=== PATIENT | male | born 1955 | race Caucasian/White ===

== ENCOUNTER 2023-05-12 15:43 | Inpatient (IN) | payer MEDICARE, BC ==
[~2023-05-12] VITALS: Ht 189.2 cm; Wt 111.1 kg
[2023-05-12] MEDS ORDERED: ONDANSETRON HCL 4 MG/2 ML VIAL IV ONE (16:15)
[2023-05-12] MEDS ORDERED: SODIUM CHLORIDE 0.9% 1,000 ML IV ONE ×2 (16:15)
[2023-05-12 16:25] LABS: Basophils # (auto) 0 10 ^3/uL (0-0.2); Basophils % (auto) 0.3 % (0.0-2.0); Eosinophils # (auto) 0.1 10 ^3/uL (0-0.8); Eosinophils % (auto) 1.8 % (0.0-7.0); Hematocrit 35.2 % (36.0-46.0); Hemoglobin 11.7 g/dL (12.2-16.2); Lymphocytes # (auto) 0.7 10 ^3/uL (0.4-5.4); Lymphocytes % (auto) 10.6 % (10.0-50.0); Mean Corpuscular Hemoglobin 33.5 pg (28.0-32.0); Mean Corpuscular Hgb Conc. 33.2 g/dL (32.0-36.0); Mean Corpuscular Volume 100.9 fL (80.0-100.0); Monocytes # (auto) 0.4 10 ^3/uL (0-1.3); Monocytes % (auto) 6.2 % (0.0-12.0); Neutrophils # (auto) 5.2 10 ^3/uL (1.6-8.6); Neutrophils % (auto) 81.1 % (37.0-80.0); Red Blood Cells 3.49 10^6/uL (4.0-5.20); Red Cell Distribution Width 14.3 % (11.8-14.3); White Blood Cell 6.4 10^3/uL (4.4-10.8)
[2023-05-12 16:43] LABS: Alanine Aminotransferase 22 U/L (7-40); Albumin 4.4 g/dL (3.2-4.8); Alkaline Phosphatase 117 U/L (46-116); Anion Gap 6 (5-15); Aspartate Aminotransferase 24 U/L (13-40); BUN/Creatinine Ratio 15.1 (10.0-20.0); Bilirubin, Total 0.4 mg/dL (0.2-1.0); Blood Urea Nitrogen 14 mg/dL (9-23); Calcium 9.9 mg/dL (8.5-10.1); Carbon Dioxide 26 mmol/L (20-30); Chloride 107 mmol/L (98-107); Glucose 143 mg/dL (74-106); Potassium 3.7 mmol/L (3.5-5.1); Sodium 139 mmol/L (136-145)
[2023-05-12] MEDS ORDERED: LEVO200T7 PO (20:06)
[2023-05-12] MEDS ORDERED: HYDR12.59 PO (20:06)
[2023-05-12] MEDS ORDERED: LISI20TA56 PO (20:06)
[2023-05-12] MEDS ORDERED: ICOS1CAP PO (20:06)
[2023-05-12] MEDS ORDERED: ALLO100T PO (20:06)
[2023-05-12] MEDS ORDERED: DOCUSATE SOD 100 MG CAP PO PRN (20:15)
[2023-05-12] MEDS ORDERED: MORPHINE SULFATE INJ 2 MG/ml SYRG IV PRN (20:15)
[2023-05-12] MEDS ORDERED: NITROGLYCERIN 0.4 MG SL TAB SL PRN (20:15)
[2023-05-12] MEDS ORDERED: ONDANSETRON HCL 4 MG/2 ML VIAL IV PRN (20:15)
[2023-05-12] MEDS ORDERED: ACETAMINOPHEN 325 MG TAB PO PRN (20:15)
[2023-05-12 20:40] VITALS: PULSE 77; RESP 13; O2SAT 96
[2023-05-12] MEDS ORDERED: PANTOPRAZOLE 40 MG TAB PO ONE (20:45)
[2023-05-12] MEDS: [UNRECOGNIZED DRUG - OTHER] PO SCH (22:00)
[2023-05-12] MEDS: LISINOPRIL 20 MG TAB PO SCH (22:46)
[2023-05-12] MEDS: ALLOPURINOL 100 MG TAB PO SCH (22:46)
[2023-05-13] VITALS (8 sets, daily range): BP systolic 129–166; BP diastolic 68–85; PULSE 70–89; RESP 16–19; TEMP 98.2–98.8; O2SAT 92–97
[2023-05-13 02:55] LABS: Urine Bacteria NONE SEEN /hpf (None Seen); Urine Blood Negative /uL (Negative); Urine Clarity Clear (Clear); Urine Color Yellow (Yellow); Urine Protein, UAD Negative (Negative); Urine Specific Gravity 1.016 (1.001-1.035); Urine Urobilinogen Normal (Negative); Urine WBC 1 /hpf (0 - 3); Urine pH 6.5 (5.0-8.0)
[2023-05-13] MEDS: hydrALAZINE HCL 20 MG/ML VL IV PRN (03:30)
[2023-05-13] MEDS: LEVOTHYROXINE SODIUM 100 MCG TAB PO SCH (05:20)
[2023-05-13] MEDS: hydroCHLOROthiazide 25 MG TAB PO SCH (05:21)
[2023-05-13 06:38] LABS: Basophils # (auto) 0 10 ^3/uL (0-0.2); Basophils % (auto) 0.4 % (0.0-2.0); Eosinophils # (auto) 0 10 ^3/uL (0-0.8); Eosinophils % (auto) 0.4 % (0.0-7.0); Hemoglobin 11.3 g/dL (13.5-17.5); Lymphocytes # (auto) 0.6 10 ^3/uL (0.4-5.4); Lymphocytes % (auto) 11.4 % (10.0-50.0); Mean Corpuscular Hemoglobin 33.7 pg (28.0-32.0); Mean Corpuscular Hgb Conc. 33.2 g/dL (32.0-36.0); Mean Corpuscular Volume 101.5 fL (80.0-100.0); Monocytes # (auto) 0.4 10 ^3/uL (0-1.3); Monocytes % (auto) 8.3 % (0.0-12.0); Neutrophils # (auto) 4.2 10 ^3/uL (1.6-8.6); Neutrophils % (auto) 79.5 % (37.0-80.0); Red Blood Cells 3.34 10^6/uL (4.5-5.90); Red Cell Distribution Width 14.3 % (11.8-14.3); White Blood Cell 5.3 10^3/uL (4.4-10.8)
[2023-05-13 06:58] LABS: Alanine Aminotransferase 21 U/L (7-40); Albumin 4.1 g/dL (3.2-4.8); Alkaline Phosphatase 104 U/L (46-116); Anion Gap 6 (5-15); Aspartate Aminotransferase 22 U/L (13-40); BUN/Creatinine Ratio 11.7 (10.0-20.0); Bilirubin, Total 0.4 mg/dL (0.2-1.0); Blood Urea Nitrogen 11 mg/dL (9-23); Calcium 9.4 mg/dL (8.5-10.1); Carbon Dioxide 25 mmol/L (20-30); Chloride 108 mmol/L (98-107); Glucose 142 mg/dL (74-106); Potassium 3.7 mmol/L (3.5-5.1); Sodium 139 mmol/L (136-145)
[2023-05-13] MEDS: ALLOPURINOL 100 MG TAB PO SCH ×2 (09:37→20:57)
[2023-05-13] MEDS: LISINOPRIL 20 MG TAB PO SCH ×2 (09:38→20:58)
[2023-05-13] MEDS: [UNRECOGNIZED DRUG - OTHER] PO SCH ×2 (09:39→22:24)
[2023-05-13] MEDS: PANTOPRAZOLE 40 MG TAB PO SCH (09:39)
[2023-05-13] MEDS ORDERED: cefTRIAXone 1GM/50ML D5W 50 ML IV ONE (13:30)
[2023-05-13] MEDS: metroNIDAZOLE 500MG/100ML 100 ML IV SCH ×2 (17:33→20:58)
[2023-05-14] VITALS (10 sets, daily range): BP systolic 145–169; BP diastolic 68–93; PULSE 61–87; RESP 16–18; TEMP 97.8–98.7; O2SAT 94–99
[2023-05-14] MEDS: hydrALAZINE HCL 20 MG/ML VL IV PRN ×2 (04:37→11:55)
[2023-05-14] MEDS: LEVOTHYROXINE SODIUM 100 MCG TAB PO SCH (05:15)
[2023-05-14] MEDS: hydroCHLOROthiazide 25 MG TAB PO SCH (05:17)
[2023-05-14] MEDS: metroNIDAZOLE 500MG/100ML 100 ML IV SCH ×3 (05:17→22:18)
[2023-05-14] MEDS: LISINOPRIL 20 MG TAB PO SCH ×2 (08:55→22:18)
[2023-05-14] MEDS: ALLOPURINOL 100 MG TAB PO SCH ×2 (08:55→22:17)
[2023-05-14] MEDS: PANTOPRAZOLE 40 MG TAB PO SCH (08:56)
[2023-05-14] MEDS: cefTRIAXone 1GM/50ML D5W 50 ML IV SCH (08:56)
[2023-05-14] MEDS: SALINE 0.65 % NASAL SPRAY 45ML BOTTLE EACHNOSTRI SCH (08:57)
[2023-05-14] MEDS: [UNRECOGNIZED DRUG - OTHER] PO SCH ×2 (08:57→22:20)
[2023-05-15] VITALS (8 sets, daily range): BP systolic 143–168; BP diastolic 73–81; PULSE 62–67; RESP 16–20; TEMP 98–99.1; O2SAT 94–99
[2023-05-15] MEDS: hydrALAZINE HCL 20 MG/ML VL IV PRN (06:02)
[2023-05-15] MEDS: hydroCHLOROthiazide 25 MG TAB PO SCH (06:02)
[2023-05-15] MEDS: metroNIDAZOLE 500MG/100ML 100 ML IV SCH ×3 (06:03→21:46)
[2023-05-15] MEDS: LEVOTHYROXINE SODIUM 100 MCG TAB PO SCH (06:03)
[2023-05-15] MEDS: cefTRIAXone 1GM/50ML D5W 50 ML IV SCH (08:38)
[2023-05-15] MEDS: ALLOPURINOL 100 MG TAB PO SCH ×2 (08:38→21:46)
[2023-05-15] MEDS: PANTOPRAZOLE 40 MG TAB PO SCH (08:39)
[2023-05-15] MEDS: LISINOPRIL 20 MG TAB PO SCH ×2 (08:40→21:48)
[2023-05-15] MEDS: SALINE 0.65 % NASAL SPRAY 45ML BOTTLE EACHNOSTRI SCH (08:40)
[2023-05-15] MEDS: [UNRECOGNIZED DRUG - OTHER] PO SCH ×2 (08:40→21:48)
[2023-05-15] MEDS ORDERED: amLODIPine BESYLATE 5 MG TAB PO ONE (10:15)
[2023-05-15] MEDS ORDERED: OMEP20TA PO (12:59)
[2023-05-16 05:00] VITALS: BP 154/75; PULSE 60; RESP 16; TEMP 98.1; O2SAT 96
[2023-05-16] MEDS: hydrALAZINE HCL 20 MG/ML VL IV PRN (06:02)
[2023-05-16] MEDS: LEVOTHYROXINE SODIUM 100 MCG TAB PO SCH (06:02)
[2023-05-16] MEDS: hydroCHLOROthiazide 25 MG TAB PO SCH (06:03)
[2023-05-16] MEDS: metroNIDAZOLE 500MG/100ML 100 ML IV SCH (06:16)
[2023-05-16 07:30] VITALS: PULSE 64
[2023-05-16 09:00] VITALS: BP 137/68; PULSE 65; RESP 20; TEMP 98.2; O2SAT 96
[2023-05-16] MEDS: cefTRIAXone 1GM/50ML D5W 50 ML IV SCH (09:00)
[2023-05-16] MEDS: [UNRECOGNIZED DRUG - OTHER] PO SCH (10:00)
[2023-05-16] MEDS: SALINE 0.65 % NASAL SPRAY 45ML BOTTLE EACHNOSTRI SCH (10:00)
[2023-05-16] MEDS ORDERED: amLODIPine BESYLATE 5 MG TAB PO SCH (10:00)
[2023-05-16] MEDS ORDERED: HYDR12.55 PO (10:11)
[2023-05-16] MEDS ORDERED: AMLO1TAB23 PO (10:12)
[2023-05-16] MEDS ORDERED: MECL25CH85 PO (10:12)
[2023-05-16] MEDS: ALLOPURINOL 100 MG TAB PO SCH (11:03)
[2023-05-16] MEDS: PANTOPRAZOLE 40 MG TAB PO SCH (11:03)
[2023-05-16] MEDS: LISINOPRIL 20 MG TAB PO SCH (11:04)
[2023-05-16 11:51] VITALS: BP 137/68; TEMP 36.8
[2023-05-16 12:59] VITALS: BP 123/81; PULSE 66; RESP 20; TEMP 98.5; O2SAT 96
== END 2023-05-16 13:15 | disposition home or self-care (01) | DRG 392 ==
LOC: EDBD 15:43 → ER 15:43 → TELE 20:05 → TELE-EAST 20:05
PROVIDERS: ADMIT Nurse Practitioner Family; ATTEND Family Medicine
DX: K52.9 Noninfective gastroenteritis and colitis, unspecified (principal); I16.1 Hypertensive emergency; A05.9 Bacterial foodborne intoxication, unspecified; I10 Essential (primary) hypertension; E03.9 Hypothyroidism, unspecified; E78.00 Pure hypercholesterolemia, unspecified; D64.9 Anemia, unspecified; I25.10 Atherosclerotic heart disease of native coronary artery without angina pectoris; M10.9 Gout, unspecified; R16.0 Hepatomegaly, not elsewhere classified; Z85.46 Personal history of malignant neoplasm of prostate; Z80.42 Family history of malignant neoplasm of prostate; Z82.49 Family history of ischemic heart disease and other diseases of the circulatory system
CPT/HCPCS: 36415; 70450; 70551; 72141; 74176; 80053; 81001; 83690; 84484; 85025; 93306; 93886; 95819; G0378; J3490